=== PATIENT | male | born 1960 | race Caucasian/White ===

== ENCOUNTER 2018-07-11 02:51 | Emergency (ER) | payer MEDICARE, MEDICAID, SELFPAY ==
[2018-07-11] VITALS (10 sets, daily range): BP systolic 118–150; BP diastolic 57–88; PULSE 74–91; RESP 15–20; TEMP 36.8–36.9; O2SAT 98–100; BMI 30.1
--- NOTE | 2018-07-11 03:01 | DI.RAD.S_ITS ---
PROCEDURE: XR CHEST 1V INDICATIONS: chest pain, shortness of breath TECHNIQUE: One view of the chest was acquired. COMPARISON: [facility], , CHEST 1 VIEW, 08/02/2014, 15:22. FINDINGS: Surgical changes and devices: None. Lungs and pleura: No pleural effusions or pneumothorax. There is mild pulmonary vascular congestion. No definite focal infiltrate. Mediastinum: Mediastinal contours appear normal. Heart size is enlarged. Bones and chest wall: No suspicious bony lesions. Overlying soft tissues appear unremarkable. IMPRESSION: Cardiomegaly and mild congestion. No definite focal infiltrate. Dictated by: Keith Borja M.D. on 07/11/2018 at 9:09 Approved by: Keith Borja M.D. on 07/11/2018 at 9:11
--- NOTE | 2018-07-11 03:03 | ED.CHESTPAIN ---
HPI - Chest Pain General Chief Complaint: Chest Pain Stated Complaint: Chest Pain Time Seen by Provider: 07/11/18 03:00 Source: patient and EMS Mode of arrival: EMS History of Present Illness HPI narrative: 57-year-old male, smoker with cardiac and stroke history presents by EMS with a chief complaint of left anterior chest pressure that started while at rest just prior to arrival. He admits to radiation to his left shoulder, shortness of breath and diaphoresis. He is nauseated but denies vomiting. He was discharged a few days ago from [facility] for an apparent stroke. He has got extensive cardiac history and has multiple stents. He is a poor historian and it is unclear when his last thorough cardiac evaluation was. His records have been requested. He denies any provocation of his pain but states he may have had some mild improvement after EMS gave him nitro MD complaint: chest pain Onset (ago): minute(s) Duration: constant Onset: during rest Pain location: left chest Severity: moderate Severity scale (1-10): 5 Quality: tightness and heaviness Pain radiation: LUE and jaw/teeth Relieving factors: nitroglycerin Exacerbating factors: nothing Context: recent illness and recent immobilization Associated symptoms: nausea, diaphoresis and dyspnea Treatments prior to arrival chest pain: aspirin, nitroglycerin and oxygen Related Data Home Medications Medication Instructions Recorded Confirmed Ranitidine Hydrochloride 150 mg PO BID #0 03/10/12 (RANITIDINE) aspirin 325 mg PO QDAY #0 03/10/12 atorvastatin [Lipitor] 40 mg PO QDAY #0 03/10/12 clopidogrel [Plavix] 75 mg PO QDAY #0 03/10/12 hydrochlorothiazide 12.5 mg PO QDAY #0 03/10/12 lisinopril 10 mg PO QDAY #0 03/10/12 metoprolol tartrate 25 mg PO BID #0 03/10/12 HYDROCODONE/ACET (HYDROCODONE 1 tab PO Q4HP #0 03/25/12 BITARTRATE-ACETAMINOPHEN) ISOSORBIDE MONONITRATE (Imdur) 90 mg PO QDAY #0 03/25/12 albuterol sulfate [Proventil HFA] 2 puff OR PRN #0 03/25/12 amlodipine [Norvasc] 5 mg PO QDAY #0 03/25/12 fluticasone-salmeterol [Advair 1 puff BID #0 03/25/12 Diskus] nitroglycerin [Nitrostat] 0.4 mg SUBLINGUAL PRN #0 03/25/12 Allergies Allergy/AdvReac Type Severity Reaction Status Date / Time Penicillins Allergy Severe Swelling Verified 07/11/18 04:43 of Lip/Tongue/Throat carbamazepine [From Tegretol] AdvReac Verified 07/11/18 04:42 Review of Systems Review of Systems All systems reviewed & are unremarkable except as noted in HPI and below Constitutional Denies chills, Denies fever(s), Denies lethargy and Denies weakness Eyes Denies change in vision, Denies eye discharge, Denies irritation and Denies loss of vision ENT Ears, Nose, Mouth, and Throat: Denies change in voice, Denies neck pain and Denies sore throat Cardiovascular Reports chest pain, Denies irregular heart rhythm, Reports lightheadedness, Denies palpitations, Reports dyspnea, Reports dyspnea on exertion and Denies orthopnea Respiratory Denies cough, Reports dyspnea, Reports dyspnea on exertion and Denies wheezing Gastrointestinal Gastrointestinal: Denies abdominal pain, Denies change in bowel habits, Denies diarrhea, Reports nausea and Denies vomiting Genitourinary Denies hematuria, Denies flank pain, Denies urinary incontinence and Denies urinary urgency Musculoskeletal Denies neck pain Integumentary/Breasts Denies pruritus, Denies erythema, Denies rash and Denies wounds Neurologic Denies confusion, Denies loss of vision and Denies weakness Psychiatric Denies anxiety, Denies confusion, Denies depression, Denies homicidal ideation and Denies suicidal ideation Endocrine Denies palpitations Hematologic/Lymphatic Denies easy bruising Allergic/Immunologic Denies wheezing PFSH Medical History CAD (coronary artery disease) (Acute) COPD (chronic obstructive pulmonary disease) (Acute) CVA (cerebral vascular accident) (Acute) HTN (hypertension) (Acute) Hyperlipidemia (Acute) Social History Smoking Status: Current every day smoker Exam Narrative Exam Narrative: 57M ill appearing male appears unwell and in distress Initial Vital Signs Initial Vital Signs: Vital Signs Temperature 98.2 F 07/11/18 02:58 Pulse Rate 91 H 07/11/18 02:58 Respiratory Rate 20 07/11/18 02:58 Blood Pressure 136/85 07/11/18 02:58 Pulse Oximetry 100 07/11/18 02:58 Const General: cooperative, No healthy appearing, well developed, acute distress, diaphoretic, disheveled and ill appearing Nutritional Appearance: well nourished Orientation: alert, awake, oriented x3 and not confused [facility] Head: normal to inspection Ears: hearing grossly normal bilaterally Nose: external nose normal Face and sinus: normal facial exam Teeth and gingiva: poor dentition Eyes General: appearance normal, both eyes and all related structures Eyelids: eyelids normal Conjunctivae: conjunctivae normal Sclera: sclerae normal Pupils: PERRL EOM: EOM intact bilaterally Neck Neck: normal visual inspection, trachea midline, No lymphadenopathy, No midline deformity and No JVD Lymphatic: No lymphedema Resp Effort & Inspection: normal respiratory effort, able to speak in complete sentences, no respiratory distress and no use of accessory muscles Auscultation: diminished lung sounds, no rales, no rhonchi and no wheezes Cardio Rate: regular rate Rhythm: regular rhythm Heart Sounds: no click, no gallops, no murmurs and no rubs Pulses: normal peripheral pulses Back/Spine/Pelvis Back: No CVA tenderness Cervical Spine: cervical ROM normal and No pain with cervical ROM Thoracic/Lumbar Spine: thoracic and lumbar spine normal to inspection Skin General: no rashes or lesions noted, No jaundice and No petechiae Neuro General: alert, oriented x3, gait normal and no focal motor deficits Speech: speech normal Course Orders Ordered: Discontinued Medications Sodium Chloride (Normal Saline 0.9%) 1,000 mls @ 150 mls/hr IV CONT SORAYA Last Infusion: 07/11/18 08:09 Dose: 0 mls/hr Admin: 07/11/18 03:15 Dose: 150 mls/hr Metoprolol Tartrate (Lopressor) 5 mg IV NOW ONE Stop: 07/11/18 03:02 Last Admin: 07/11/18 03:15 Dose: 5 mg Morphine Sulfate (Morphine) 4 mg IV NOW ONE Stop: 07/11/18 03:02 Last Admin: 07/11/18 03:44 Dose: 4 mg Nitroglycerin (Nitrostat) 0.4 mg SL [id number] PRN PRN Reason: Chest Pain Last Admin: 07/11/18 03:20 Dose: 0.4 mg Olanzapine (Zyprexa Zydis) 10 mg PO NOW ONE Stop: 07/11/18 04:24 Last Admin: 07/11/18 04:29 Dose: 10 mg Reevaluation(s) Reevaluation #1: Patient currently complaining of pain 4/10. IV being placed. Records being sent Time: 03:09 Reevaluation #2: pain now 0/10 after 1st NG. Repeat EKG ordered Time: 03:29 Consultations Consultation #1: call to [facility] Cardiology. Records from recent admission for CVA, meth use, note max Troponin 0.011 No available beds, call to [facility] at patient request. Remains pain free Time: 04:01 Consultation #2: Dr. Scott (Cardio at [facility]) consulted and requests we speak with Hospitalist. No need for heparin at this point Vital Signs - 8 hr 07/11/18 02:58 07/11/18 03:20 07/11/18 03:32 Temperature 98.2 F Pulse Rate 91 H 89 86 Respiratory Rate 20 Blood Pressure 136/85 143/79 H 146/57 H Blood Pressure [Right Arm] Pulse Oximetry 100 07/11/18 03:33 Temperature Pulse Rate 83 Respiratory Rate 17 Blood Pressure Blood Pressure [Right Arm] 146/57 H Pulse Oximetry 98 MDM - Chest Pain Lab Data Result diagrams: 07/11/18 03:10 07/11/18 03:10 Lab Results 07/11/18 07/11/18 07/11/18 Range/Units 03:10 03:10 03:10 WBC 5.9 (4.5-11.0) X10^3/uL RBC 4.13 L (4.5-5.9) X10^6/uL Hgb 12.6 L (13.5-17.5) g/dL Hct 38.2 L (41-53) % MCV 92.4 (80-100) fL MCH 30.4 (26-34) PG MCHC 32.9 (30-36) % RDW 14.4 (11.6-14.8) % Plt Count 198 (150-400) X10^3/uL Neut % (Auto) 57.8 (50-75) % Lymph % (Auto) 17.8 L (25-40) % [place] % (Auto) 19.2 H (3-14) % Eos % (Auto) 4.3 H (2-4) % Baso % (Auto) 0.9 (0-2) % Neut # (Auto) 3400 (4742-1321) /uL PT 13.3 H (10.1-12.7) SECONDS INR 1.2 (0.9-1.3) APTT 33 (26.4-36.2) SECONDS Sodium 142 (137-145) mmol/L Potassium 3.6 (3.4-5.1) mmol/L Chloride 103 (98-107) mmol/L Carbon Dioxide 26 (22-32) mmol/L BUN 26 H (9-20) mg/dL Creatinine 1.20 (0.66-1.25) mg/dL Estimated GFR > 60.0 (>60) mL/min BUN/Creatinine Ratio 21.7 (6-22) Glucose 104 H (70-100) mg/dL Calcium 8.5 (8.4-10.2) mg/dL Total Bilirubin 0.4 (0.2-1.3) mg/dL AST 75 H (17-59) IU/L ALT 80 H (21-72) IU/L Alkaline Phosphatase 67 (38-126) U/L Total Creatine Kinase 644 H (55-170) U/L CK-MB (CK-2) 5.15 H (<2.37) ng/mL CK-MB (CK-2) Rel Index 0.8 L (1.5-5.0) % Troponin I 0.076 H (0.01-0.034) ng/mL Total Protein 8.1 (6.3-8.2) g/dL Albumin 4.1 (3.5-5.0) g/dL Globulin 4.0 (1.7-4.1) g/dL Albumin/Globulin Ratio 1.0 (1.0-2.8) Lipase 151 (23-300) U/L 07/11/18 Range/Units 05:31 WBC (4.5-11.0) X10^3/uL RBC (4.5-5.9) X10^6/uL Hgb (13.5-17.5) g/dL Hct (41-53) % MCV (80-100) fL MCH (26-34) PG MCHC (30-36) % RDW (11.6-14.8) % Plt Count (150-400) X10^3/uL Neut % (Auto) (50-75) % Lymph % (Auto) (25-40) % [place] % (Auto) (3-14) % Eos % (Auto) (2-4) % Baso % (Auto) (0-2) % Neut # (Auto) (7529-1855) /uL PT (10.1-12.7) SECONDS INR (0.9-1.3) APTT (26.4-36.2) SECONDS Sodium (137-145) mmol/L Potassium (3.4-5.1) mmol/L Chloride (98-107) mmol/L Carbon Dioxide (22-32) mmol/L BUN (9-20) mg/dL Creatinine (0.66-1.25) mg/dL Estimated GFR (>60) mL/min BUN/Creatinine Ratio (6-22) Glucose (70-100) mg/dL Calcium (8.4-10.2) mg/dL Total Bilirubin (0.2-1.3) mg/dL AST (17-59) IU/L ALT (21-72) IU/L Alkaline Phosphatase (38-126) U/L Total Creatine Kinase (55-170) U/L CK-MB (CK-2) (<2.37) ng/mL CK-MB (CK-2) Rel Index (1.5-5.0) % Troponin I 0.073 H (0.01-0.034) ng/mL Total Protein (6.3-8.2) g/dL Albumin (3.5-5.0) g/dL Globulin (1.7-4.1) g/dL Albumin/Globulin Ratio (1.0-2.8) Lipase (23-300) U/L ECG Data Attestation: I personally reviewed and interpreted this ECG as follows: Prior ECG tracings: available for review Interpretation: EKG is normal sinus rhythm rate [ 93] and free of any signs of ischemia or ectopy. No ST segmental elevation or depression. No T wave inversions right bundle branch block, actually improved over EKG from [facility] admission last week Discharge Plan Departure Patient Disposition: [facility] Clinical Impression: Chest pain Discharge Date/Time: 07/11/18 09:30 Interventions: ED Discharge Assessment Last Done: 07/11/18 09:17 Prescriptions: No Action atorvastatin [Lipitor] 40 MG tablet 40 mg PO QDAY Qty: 0 RF: 0 aspirin 325 MG tablet,delayed release (DR/EC) 325 mg PO QDAY Qty: 0 RF: 0 hydrochlorothiazide 12.5 MG capsule 12.5 mg PO QDAY Qty: 0 RF: 0 clopidogrel [Plavix] 75 MG tablet 75 mg PO QDAY Qty: 0 RF: 0 lisinopril 10 MG tablet 10 mg PO QDAY Qty: 0 RF: 0 Ranitidine Hydrochloride (RANITIDINE) 150 mg PO BID Qty: 0 RF: 0 metoprolol tartrate 25 MG tablet 25 mg PO BID Qty: 0 RF: 0 fluticasone-salmeterol [Advair Diskus] 100 MCG/50 MCG blister with device 1 puff BID Qty: 0 RF: 0 nitroglycerin [Nitrostat] 0.4 MG tablet, sublingual 0.4 mg Sublingual PRN Qty: 0 RF: 0 HYDROCODONE/ACET (HYDROCODONE BITARTRATE-ACETAMINOPHEN) 1 tab PO Q4HP Qty: 0 RF: 0 ISOSORBIDE MONONITRATE (Imdur) 90 mg PO QDAY Qty: 0 RF: 0 albuterol sulfate [Proventil HFA] 90 MCG/PUFF HFA aerosol inhaler 2 puff OR PRN Qty: 0 RF: 0 amlodipine [Norvasc] 5 MG tablet 5 mg PO QDAY Qty: 0 RF: 0
[2018-07-11] MEDS: SODIUM CHLORIDE 0.9% 1,000 ML 150 ML IV (03:15)
[2018-07-11] MEDS: METOPROLOL TARTRATE 5 MG/5 ML INJ IV (03:15)
[2018-07-11] MEDS: NITROGLYCERIN 0.4 MG SL TAB SL (03:20)
--- NOTE | 2018-07-11 03:25 | PC.NURSE ---
Pt reports pain 0/10 after 1 SL nitro.
[2018-07-11 03:28] LABS: Add Manual Diff / Slide Review NO; Basophils Percent Auto 0.9 % (0-2); Eosinophils Percent Auto 4.3 % (2-4); Hematocrit 38.2 % (41-53); Hemoglobin 12.6 g/dL (13.5-17.5); Lymphocytes Percent Auto 17.8 % (25-40); Mean Corpuscular HGB Conc 32.9 % (30-36); Mean Corpuscular Hemoglobin 30.4 PG (26-34); Mean Corpuscular Volume 92.4 fL (80-100); Monocytes Percent Auto 19.2 % (3-14); Neutrophils Absolute Auto 3400 /uL (3000-5900); Neutrophils Percent Auto 57.8 % (50-75); Platelet Count 198 X10^3/uL (150-400); Red Blood Cell Count 4.13 X10^6/uL (4.5-5.9); Red Cell Distribution Width 14.4 % (11.6-14.8); White Blood Cell Count 5.9 X10^3/uL (4.5-11.0)
[2018-07-11 03:33] LABS: INR 1.2 (0.9-1.3); Prothrombin Time 13.3 SECONDS (10.1-12.7)
[2018-07-11 03:35] LABS: PTT Partial Thromboplastin Tim 33 SECONDS (26.4-36.2)
[2018-07-11 03:37] LABS: Alanine Aminotransferase 80 IU/L (21-72); Albumin 4.1 g/dL (3.5-5.0); Alkaline Phosphatase 67 U/L (38-126); Aspartate Aminotransferase 75 IU/L (17-59); BUN Creatinine Ratio 21.7 (6-22); Bilirubin Total 0.4 mg/dL (0.2-1.3); Blood Urea Nitrogen 26 mg/dL (9-20); Calcium 8.5 mg/dL (8.4-10.2); Carbon Dioxide 26 mmol/L (22-32); Chloride 103 mmol/L (98-107); Creatine Kinase 644 U/L (55-170); Estimated Glomerular Filt Rate > 60.0 mL/min (>60); Glucose 104 mg/dL (70-100); HEMOLYSIS < 15 (0-50); Lipase 151 U/L (23-300); Potassium 3.6 mmol/L (3.4-5.1); Sodium 142 mmol/L (137-145); Total Protein 8.1 g/dL (6.3-8.2)
[2018-07-11] MEDS: MORPHINE 4 MG/ML INJ IV (03:44)
[2018-07-11 03:49] LABS: Troponin I 0.076 ng/mL (0.01-0.034)
[2018-07-11 03:52] LABS: CKMB % Relative Index 0.8 % (1.5-5.0); Creatine Kinase MB 5.15 ng/mL (<2.37)
--- NOTE | 2018-07-11 04:25 | DI.US.S_ITS ---
PROCEDURE: US PERIPH VENOUS LOW EXTREM RT INDICATIONS: PAIN, REDNESS TECHNIQUE: Real-time imaging, as well as color and pulse Doppler interrogation, were performed of the lower extremity deep veins from the inguinal ligament to the popliteal fossa. COMPARISON: None. FINDINGS: The deep veins are normally compressible, and free of intraluminal thrombus. Color and pulse Doppler demonstrate normal phasic intraluminal flow. There is normal augmentation response to distal compression maneuver. IMPRESSION: No evidence of DVT in visualized right lower extremity veins. Dictated by: Keith Borja M.D. on 07/11/2018 at 9:12 Approved by: Keith Borja M.D. on 07/11/2018 at 9:12
[2018-07-11] MEDS: OLANZapine ODT 10 MG TAB PO (04:29)
[2018-07-11 06:02] LABS: Troponin I 0.073 ng/mL (0.01-0.034)
--- NOTE | 2018-07-11 08:11 | PC.NURSE ---
Patient sleeping with eyes closed. Respirations unlabored.
== END 2018-07-11 09:30 | disposition short-term general hospital (02) ==
PROVIDERS: Emergency Provider Emergency Medicine; PCP Family Medicine
DX: R07.89 Other chest pain (principal)
CPT/HCPCS: 36415; 71045; 80053; 82550; 82553; 83690; 84484; 85025; 85610; 85730; 93005; 93010; 93971; 96361; 96374; 96375; 99285; J2270